=== PATIENT | male | born 1965 | race Caucasian/White ===

== ENCOUNTER → 2016-11-16 | Outpatient (CLI) | payer OTHER ==
--- NOTE | 2016-11-16 12:14 | DIAGNOSTIC IMAGING REPORT ---
RIGHT KNEE 1 OR 2 VIEWS ROUTINE CLINICAL HISTORY: 51 years-old Male presenting with RIGHT KNEE PAIN Right. TECHNIQUE: Frontal and lateral views of the right knee were obtained. COMPARISON: None. FINDINGS: Minimal osteophytosis at the patellofemoral and medial compartments. No joint space loss. No subchondral sclerosis or subchondral cystic change. Fabella noted. No acute fracture or malalignment. Knee joint effusion present. Otherwise soft tissues grossly normal. IMPRESSION: 1. Knee joint effusion with minimal degenerative change of the patellofemoral and medial compartment. No acute osseous injury. Electronically signed by: Raymond Downs M.D. 11/16/2016 12:12 PM Dictated Date/Time: 11/16/2016 12:11 PM
== END | disposition home or self-care (01) ==
LOC: C.RAD1850 10:20
PROVIDERS: ATTEND Family Medicine
DX: M25.561 Pain in right knee (principal); M25.461 Effusion, right knee

== ENCOUNTER → 2017-07-18 | Outpatient (CLI) | payer OTHER | END | disposition home or self-care (01) | LOC: C.PATHSPEC 11:34 | PROVIDERS: ATTEND Dentist Oral and Maxillofacial Pathology | DX: D10.39 Benign neoplasm of other parts of mouth (principal) ==